=== PATIENT | male | born 1970 | race Two or more races ===

== ENCOUNTER 2018-11-03 11:08 | Emergency (ER) | payer SELFPAY ==
[~2018-11-03] VITALS: Ht 175.3 cm; Wt 99.8 kg
[~2018-11-03 11:08] MED LIST: NAPR220T90 PO
[2018-11-03 11:33] VITALS: BP 144/68
[2018-11-03] MEDS ORDERED: CYCL10TA2 PO (11:42)
[2018-11-03] MEDS ORDERED: NAPR-514 PO (11:42)
--- NOTE | 2018-11-03 11:43 | PHYS DOC ---
Past Medical History Past Medical History: Kidney Stone, Other Additional Past Medical Histor: CHRONIC BACK PAIN Past Surgical History: Other Additional Past Surgical Histo: LEFT THUMB SURGERY Alcohol Use: None Drug Use: None Adult General Chief Complaint Chief Complaint: BACK PAIN OR INJURY [facility] HPI 48-year-old male presents with several month history of back pain. He states it's been worse lately. He states about 8 months ago he picked up something heavy and tweaked his back. The pain is waxed and waned since that time. He denies any radicular symptoms. He denies any bowel or bladder dysfunction. He denies any saddle paresthesias. He states the pain is made much worse with twisting or flexion.[] Review of Systems Review of Systems Constitutional: Denies fever or chills [] Eyes: Denies change in visual acuity, redness, or eye pain [] HENT: Denies nasal congestion or sore throat [] Respiratory: Denies cough or shortness of breath [] Cardiovascular: No additional information not addressed in HPI [] GI: Denies abdominal pain, nausea, vomiting, bloody stools or diarrhea [] : Denies dysuria or hematuria [] Musculoskeletal: Back pain as described above[] Integument: Denies rash or skin lesions [] Neurologic: Denies headache, focal weakness or sensory changes [] Endocrine: Denies polyuria or polydipsia [] All other systems were reviewed and found to be within normal limits, except as documented in this note. Current Medications Current Medications Current Medications Medications (Trade) Dose Ordered Sig/Moris Start Time Stop Time Status Last Admin Dose Admin Cyclobenzaprine HCl (Flexeril) 10 mg 1X ONCE 11/03/18 11:45 11/03/18 11:46 UNV Naproxen (Naprosyn) 500 mg 1X ONCE 11/03/18 11:45 11/03/18 11:46 UNV Allergies Allergies Allergies Coded Allergies Type Severity Reaction Last Updated Verified No Known Drug Allergies 09/05/14 No Physical Exam Physical Exam Constitutional: Well developed, well nourished, mild distress, non-toxic appearance. [] HENT: Normocephalic, atraumatic, bilateral external ears normal, oropharynx moist, no oral exudates, nose normal. [] Eyes: PERRLA, EOMI, conjunctiva normal, no discharge. [] Neck: Normal range of motion, no tenderness, supple, no stridor. [] Cardiovascular:Heart rate regular rhythm, no murmur [] Lungs & Thorax: Bilateral breath sounds clear to auscultation [] Abdomen: Bowel sounds normal, soft, no tenderness, no masses, no pulsatile masses. [] Skin: Warm, dry, no erythema, no rash. [] Back: Thoracic or lumbar paraspinal muscle spasm right greater than left no midline vertebral tenderness or step-off[] Extremities: No tenderness, no cyanosis, no clubbing, ROM intact, no edema. [] Neurologic: Alert and oriented X 3, normal motor function, normal sensory function, no focal deficits noted. [] Psychologic: Affect normal, judgement normal, mood normal. [] Current Patient Data Vital Signs Vital Signs Date Time Temp Pulse Resp B/P (MAP) Pulse Ox O2 Delivery O2 Flow Rate FiO2 11/03/18 11:33 97.2 69 16 144/68 (93) 97 Room Air 97.2 EKG EKG [] Radiology/Procedures Radiology/Procedures [] Course & Med Decision Making Course & Med Decision Making Pertinent Labs and Imaging studies reviewed. (See chart for details) [] Dragon Disclaimer Dragon Disclaimer This electronic medical record was generated, in whole or in part, using a voice recognition dictation system. Departure Departure Impression: Primary Impression: Back pain Disposition: 01 HOME, SELF-CARE Condition: STABLE Referrals: NO PCP (PCP) Patient Instructions: Back Pain, Adult, Chronic Back Pain Additional Instructions: Return to the emergency department with any new or concerning symptoms Scripts Naproxen (NAPROXEN) 500 Mg Tablet 1 TAB PO BID PRN for PAIN, #30 TAB 1 Refill Prov: CHRIS GARCIA DO 11/03/18 Cyclobenzaprine Hcl (CYCLOBENZAPRINE HCL) 10 Mg Tablet 1 TAB PO TID PRN for MUSCLE PAIN, #30 TAB Prov: CHRIS GARCIA DO 11/03/18 Problem Qualifiers Primary Impression: Back pain Back pain location: back pain in unspecified location Chronicity: chronic Back pain laterality: bilateral Qualified Codes: M54.9 - Dorsalgia, unspecified; G89.29 - Other chronic pain CHRIS GARCIA DO Nov 03, 2018 11:43
[2018-11-03] MEDS ORDERED: NAPROXEN 500 MG TABLET PO ONE (12:00)
[2018-11-03] MEDS ORDERED: CYCLOBENZAPRINE 10 MG TABLET. PO ONE (12:00)
== END 2018-11-03 12:23 | disposition home or self-care (01) ==
LOC: ER 11:08
DX: M54.9 Dorsalgia, unspecified (principal); G89.29 Other chronic pain; Z87.442 Personal history of urinary calculi
CPT/HCPCS: 99283

== ENCOUNTER 2019-12-27 10:01 | Emergency (ER) | payer SELFPAY ==
[~2019-12-27] VITALS: Ht 180.3 cm; Wt 95.0 kg
[~2019-12-27 10:01] MED LIST changes: +CYCL10TA2 PO; +NAPR-514 PO
[2019-12-27] MEDS ORDERED: ONDANSETRON PF 4 MG/2 ML VIAL. IVP ONE (11:15)
[2019-12-27] MEDS ORDERED: IV NORMAL SALINE 1000ML BAG 1,000 ML IV ONE (11:15)
[2019-12-27] MEDS ORDERED: FAMOTIDINE 20 MG/2 ML VIAL IVP ONE (11:15)
[2019-12-27 11:36] LABS: BASO % 1 % (0-3); EOS # 0.1 x10^3/uL (0.0-0.7); EOS % 2 % (0-3); HEMATOCRIT 44.3 % (39.0-53.0); LYMPH # 1.7 x10^3/uL (1.0-4.8); LYMPH % 26 % (24-48); MEAN CORPUSCULAR HEMOGLOBIN 30 pg (25-35); MEAN CORPUSCULAR HGB CONC 34 g/dL (31-37); MEAN CORPUSCULAR VOLUME 88 fL (79-100); MONO # 0.4 x10^3/uL (0.0-1.1); MONO % 6 % (0-9); NEUT # 4.4 x10^3/uL (1.8-7.7); NEUT % 66 % (31-73); PLATELET COUNT 195 x10^3/uL (140-400); RED BLOOD COUNT 5.02 x10^6/uL (4.30-5.70); RED CELL DISTRIBUTION WIDTH 13.4 % (11.5-14.5); WHITE BLOOD COUNT 6.6 x10^3/uL (4.0-11.0)
[2019-12-27 11:38] LABS: BILIRUBIN,URINE NEGATIVE (NEG); CLARITY,URINE CLEAR; COLOR,URINE YELLOW; NITRITE,URINE NEGATIVE (NEG); PH,URINE 6.5 (<5.0-8.0); PROTEIN,URINE NEGATIVE (NEG-TRACE); UROBILINOGEN,URINE 0.2 mg/dL (0.2 mg/dL)
[2019-12-27 11:46] LABS: AMPHETAMINE/METHAMPHETAMINE NEG (NEG); BARBITURATES NEG (NEG); BENZODIAZEPINES NEG (NEG); CANNABINOIDS NEG (NEG); COCAINE NEG (NEG); METHADONE NEG (NEG); OPIATES NEG (NEG); PHENCYCLIDINE NEG (NEG)
[2019-12-27 11:47] LABS: BACTERIA,URINE FEW /HPF (0-FEW)
[2019-12-27 11:52] LABS: CALCIUM 9.1 mg/dL (8.5-10.1); CREATININE 0.8 mg/dL (0.7-1.3); GFR 103.6; POTASSIUM 4.2 mmol/L (3.5-5.1)
[2019-12-27 11:57] LABS: ALBUMIN/GLOBULIN RATIO 1.2 (1.0-1.7); MAGNESIUM 2.4 mg/dL (1.8-2.4); TOTAL BILIRUBIN 0.2 mg/dL (0.2-1.0); TOTAL PROTEIN 7.4 g/dL (6.4-8.2)
[2019-12-27] MEDS ORDERED: IOHEXOL 300 MG/ML 100ML VIAL. IV ONE (12:15)
--- NOTE | 2019-12-27 12:53 | RAD ---
Contrast-enhanced CT scan of the abdomen and pelvis compared to similar exam dated September 05, 2014 for abdominal pain for 2 days. TECHNIQUE: Contiguous axial CT images of the abdomen and pelvis are performed following administration of IV contrast. FINDINGS: There is atelectasis in the lung bases. The liver, pancreas, spleen, bilateral adrenal glands, and gallbladder are all unremarkable. Portal vein is patent. The right kidney is notable for 5 mm nonobstructing mid pole calyceal calculus. Also in the midpole of the right kidney laterally on series 2 axial image #37 is a 1 cm entirely parenchymal round mass with Hounsfield units of 51, which could reflect a hyperdense cyst or enhancing soft tissue renal neoplasm. There is a subtle but smaller abnormality seen on the prior examination. Further evaluation of this incompletely characterized abnormality with renal ultrasound, three-phase CT scan or MRI is recommended. In the mid substance of the left kidney posteriorly on series #2 axial image #32 is an ovoid 1 cm hypodensity which also has Hounsfield units greater than simple fluid at 24. This was present on the prior noncontrast CT scan from 2014 and is most likely a benign cyst. No further follow-up of this abnormality is required. No ureteral or bladder calculi are identified. No free or loculated fluid collections are seen within the abdomen or pelvis. There is a small amount of enteric contrast within the distal small bowel, however this is minimal. No gross abnormalities of large or small bowel are identified. There are few sigmoid diverticula, however there is no evidence of acute diverticulitis. No suspicious mesenteric or retroperitoneal adenopathy is seen. The appendix is not identified. Small coarse calcification in the prostate is present. Prostate does not appear grossly enlarged however. No fractures or acute osseous abnormalities are identified. No suspicious osteoblastic or osteolytic bone lesions. IMPRESSION: 1. No acute abdominal or pelvic abnormality. 2. 5 mm nonobstructing right calyceal calculus. 3. Bibasilar atelectasis. 4. 1 cm parenchymal round high attenuation abnormality within the mid substance of the right kidney which is incompletely characterized and could reflect a benign hyperdense cyst, or renal neoplasm. Further evaluation with renal ultrasound, [address] scan, or MRI is recommended. Para PQRS Compliance Statement: One or more of the following individualized dose reduction techniques were utilized for this examination: 1. Automated exposure control 2. Adjustment of the mA and/or kV according to patient size 3. Use of iterative reconstruction technique Electronically signed by: Lg Jane MD (12/27/2019 12:49 PM) [id number]
--- NOTE | 2019-12-27 14:36 | RAD ---
Complete right renal ultrasound HISTORY: Right renal mass on CT scan. Right renal mass discovered on CT scan. Increased liver echogenicity typical steatosis. Left kidney not evaluated. Aorta and IVC not visualized due to bowel gas shadowing. Right renal length 14.4 cm. Bowel gas shadowing limits visualization of the lower pole. Normal cortical thickness and echogenicity. No renal mass or hydronephrosis evident. There is no sonographic correlate for the 1 cm lesion on recent CT imaging of the right kidney. There is an 8 mm right renal interpolar calculus present on prior CT imaging noted. The supervisor tumbling and rolling measures a separate 2.2 cm round hypoechoic nonshadowing lesion of the right renal interpolar medullary parenchyma near the renal calyces which is indeterminate, this had no obvious correlate on CT imaging. Bladder is mildly distended. IMPRESSION: 1. The 1 cm right renal interpolar lesion on prior CT imaging is not well visualized sonographically. There is a separate 2.2 cm round hypoechoic nonshadowing lesion of the right renal interpolar parenchyma near the calyces documented. This is indeterminate and could represent a complicated cystic structure or solid mass. Consider further assessment with MR imaging. 2. Increased echogenicity of the liver typical of steatosis. 3. Small right renal calculus again demonstrated. Electronically signed by: Jose Adrian MD (12/27/2019 2:33 PM) [facility]
[2019-12-27] MEDS ORDERED: TAMS0.4C97 PO (16:06)
--- NOTE | 2019-12-27 16:06 | PHYS DOC ---
Past Medical History Past Medical History: Kidney Stone, Other Additional Past Medical Histor: CHRONIC BACK PAIN Past Surgical History: Other Additional Past Surgical Histo: LEFT THUMB SURGERY Smoking Status: Never Smoker Alcohol Use: None Drug Use: None General Adult EDM: Chief Complaint: ABDOMINAL PAIN HPI: HPI: Patient is a 49 year old male who presents the ED today complaining of 6 out of 10 generalized abdominal pain that has been going on for 2 days, patient reports symptoms are worse after eating, he states he feels bloated. Denies any nausea vomiting, denies any diarrhea. Reports the last bowel movement was today and normal. He is Malagasy-speaking and the son is interpreting. He also understands some Khmer. Review of Systems: Review of Systems: Constitutional: Denies fever or chills. [] Eyes: Denies change in visual acuity. [] HENT: Denies nasal congestion or sore throat. [] Respiratory: Denies cough or shortness of breath. [] Cardiovascular: Denies chest pain or edema. [] GI: Reports generalized abdominal pain, denies nausea, vomiting, bloody stools or diarrhea. [] : Denies dysuria. [] Musculoskeletal: Denies back pain or joint pain. [] Integument: Denies rash. [] Neurologic: Denies headache, focal weakness or sensory changes. [] Psychiatric: Denies depression or anxiety. [] Heart Score: Risk Factors: Risk Factors: DM, Current or recent (<one month) smoker, HTN, HLP, family history of CAD, obesity. Risk Scores: Score 0 - 3: 2.5% MACE over next 6 weeks - Discharge Home Score 4 - 6: 20.3% MACE over next 6 weeks - Admit for Clinical Observation Score 7 - 10: 72.7% MACE over next 6 weeks - Early Invasive Strategies Current Medications: Current Medications Medications (Trade) Dose Ordered Sig/Moris Start Time Stop Time Status Last Admin Dose Admin Famotidine (Pepcid Vial) 20 mg 1X ONCE 12/27/19 11:15 12/27/19 11:16 DC 12/27/19 11:53 20 MG Iohexol (Omnipaque 300 Mg/ml) 75 ml 1X ONCE 12/27/19 12:15 12/27/19 12:16 DC 12/27/19 12:35 75 ML Ondansetron HCl (Zofran) 4 mg 1X ONCE 12/27/19 11:15 12/27/19 11:16 DC 12/27/19 11:53 4 MG Sodium Chloride 1,000 ml @ 1,000 mls/hr 1X ONCE 12/27/19 11:15 12/27/19 12:14 DC 12/27/19 11:53 1,000 MLS/HR Allergies: Allergies: Allergies Coded Allergies Type Severity Reaction Last Updated Verified No Known Drug Allergies 09/05/14 No Physical Exam: PE: Constitutional: Well developed, well nourished, no acute distress, non-toxic appearance. [] HENT: Normocephalic, atraumatic, bilateral external ears normal, oropharynx moist, no oral exudates, nose normal. [] Eyes: PERRLA, EOMI, conjunctiva normal, no discharge. [] Neck: Normal range of motion, no tenderness, supple, no stridor. [] Cardiovascular:Heart rate regular rhythm, no murmur [] Lungs & Thorax: Bilateral breath sounds clear to auscultation [] Abdomen: Bowel sounds normal, soft, no tenderness, no masses, no pulsatile masses. [] Skin: Warm, dry, no erythema, no rash. [] Back: No tenderness, no CVA tenderness. [] Extremities: No tenderness, no cyanosis, no clubbing, ROM intact, no edema. [] Neurologic: Alert and oriented X 3, normal motor function, normal sensory function, no focal deficits noted. [] Psychologic: Affect normal, judgement normal, mood normal. [] Current Patient Data: Labs: Laboratory Tests Test 12/27/19 11:26 White Blood Count 6.6 x10^3/uL (4.0-11.0) Red Blood Count 5.02 x10^6/uL (4.30-5.70) Hemoglobin 15.0 g/dL (13.0-17.5) Hematocrit 44.3 % (39.0-53.0) Mean Corpuscular Volume 88 fL (79-100) Mean Corpuscular Hemoglobin 30 pg (25-35) Mean Corpuscular Hemoglobin Concent 34 g/dL (31-37) Red Cell Distribution Width 13.4 % (11.5-14.5) Platelet Count 195 x10^3/uL (140-400) Neutrophils (%) (Auto) 66 % (31-73) Lymphocytes (%) (Auto) 26 % (24-48) Monocytes (%) (Auto) 6 % (0-9) Eosinophils (%) (Auto) 2 % (0-3) Basophils (%) (Auto) 1 % (0-3) Neutrophils # (Auto) 4.4 x10^3/uL (1.8-7.7) Lymphocytes # (Auto) 1.7 x10^3/uL (1.0-4.8) Monocytes # (Auto) 0.4 x10^3/uL (0.0-1.1) Eosinophils # (Auto) 0.1 x10^3/uL (0.0-0.7) Basophils # (Auto) 0.0 x10^3/uL (0.0-0.2) Urine Collection Type Unknown Urine Color Yellow Urine Clarity Clear Urine pH 6.5 (<5.0-8.0) Urine Specific [place] 1.020 (1.000-1.030) Urine Protein Negative mg/dL (NEG-TRACE) Urine Glucose (UA) Negative mg/dL (NEG) Urine Ketones (Stick) Negative mg/dL (NEG) Urine Blood Negative (NEG) Urine Nitrite Negative (NEG) Urine Bilirubin Negative (NEG) Urine Urobilinogen Dipstick 0.2 mg/dL (0.2 mg/dL) Urine Leukocyte Esterase Negative (NEG) Urine RBC 1-2 /HPF (0-2) Urine WBC 1-4 /HPF (0-4) Urine Bacteria Few /HPF (0-FEW) Urine Mucus Marked /LPF Sodium Level 142 mmol/L (136-145) Potassium Level 4.2 mmol/L (3.5-5.1) Chloride Level 105 mmol/L (98-107) Carbon Dioxide Level 29 mmol/L (21-32) Anion Gap 8 (6-14) Blood Urea Nitrogen 15 mg/dL (8-26) Creatinine 0.8 mg/dL (0.7-1.3) Estimated GFR (Cockcroft-Gault) 103.6 BUN/Creatinine Ratio 19 (6-20) Glucose Level 98 mg/dL (70-99) Calcium Level 9.1 mg/dL (8.5-10.1) Magnesium Level 2.4 mg/dL (1.8-2.4) Total Bilirubin 0.2 mg/dL (0.2-1.0) Aspartate Amino Transferase (AST) 24 U/L (15-37) Alanine Aminotransferase (ALT) 40 U/L (16-63) Alkaline Phosphatase 81 U/L (46-116) Total Protein 7.4 g/dL (6.4-8.2) Albumin 4.0 g/dL (3.4-5.0) Albumin/Globulin Ratio 1.2 (1.0-1.7) Lipase 129 U/L (73-393) Urine Opiates Screen Neg (NEG) Urine Methadone Screen Neg (NEG) Urine Barbiturates Neg (NEG) Urine Phencyclidine Screen Neg (NEG) Urine Amphetamine/Methamphetamine Neg (NEG) Urine Benzodiazepines Screen Neg (NEG) Urine Cocaine Screen Neg (NEG) Urine Cannabinoids Screen Neg (NEG) Ethyl Alcohol Level < 10 mg/dL (0-10) Urine Ethyl Alcohol Neg (NEG) Laboratory Tests 12/27/19 11:26 Laboratory Tests 12/27/19 11:26 Vital Signs: Vital Signs Date Time Temp Pulse Resp B/P (MAP) Pulse Ox O2 Delivery O2 Flow Rate FiO2 12/27/19 14:30 64 18 144/82 (102) 99 Room Air 12/27/19 11:33 98.2 98.2 EKG: EKG: [] Radiology/Procedures: Radiology/Procedures: PROCEDURE: CT ABD PELV W/ IV CONTRST ONLY Contrast-enhanced CT scan of the abdomen and pelvis compared to similar exam dated September 05, 2014 for abdominal pain for 2 days. TECHNIQUE: Contiguous axial CT images of the abdomen and pelvis are performed following administration of IV contrast. FINDINGS: There is atelectasis in the lung bases. The liver, pancreas, spleen, bilateral adrenal glands, and gallbladder are all unremarkable. Portal vein is patent. The right kidney is notable for 5 mm nonobstructing mid pole calyceal calculus. Also in the midpole of the right kidney laterally on series 2 axial image #37 is a 1 cm entirely parenchymal round mass with Hounsfield units of 51, which could reflect a hyperdense cyst or enhancing soft tissue renal neoplasm. There is a subtle but smaller abnormality seen on the prior examination. Further evaluation of this incompletely characterized abnormality with renal ultrasound, three-phase CT scan or MRI is recommended. In the mid substance of the left kidney posteriorly on series #2 axial image #32 is an ovoid 1 cm hypodensity which also has Hounsfield units greater than simple fluid at 24. This was present on the prior noncontrast CT scan from 2014 and is most likely a benign cyst. No further follow-up of this abnormality is required. No ureteral or bladder calculi are identified. No free or loculated fluid collections are seen within the abdomen or pelvis. There is a small amount of enteric contrast within the distal small bowel, however this is minimal. No gross abnormalities of large or small bowel are identified. There are few sigmoid diverticula, however there is no evidence of acute diverticulitis. No suspicious mesenteric or retroperitoneal adenopathy is seen. The appendix is not identified. Small coarse calcification in the prostate is present. Prostate does not appear grossly enlarged however. No fractures or acute osseous abnormalities are identified. No suspicious osteoblastic or osteolytic bone lesions. IMPRESSION: 1. No acute abdominal or pelvic abnormality. 2. 5 mm nonobstructing right calyceal calculus. 3. Bibasilar atelectasis. 4. 1 cm parenchymal round high attenuation abnormality within the mid substance of the right kidney which is incompletely characterized and could reflect a benign hyperdense cyst, or renal neoplasm. Further evaluation with renal ultrasound, [address] scan, or MRI is recommended. Para PQRS Compliance Statement: One or more of the following individualized dose reduction techniques were utilized for this examination: 1. Automated exposure control 2. Adjustment of the mA and/or kV according to patient size 3. Use of iterative reconstruction technique Electronically signed by: Lg Orr MD (12/27/2019 12:49 PM) [id number] DICTATED and SIGNED BY: LG ORR MD DATE: 12/27/19 1249 []PROCEDURE: RENAL COMPLETE RIGHT Complete right renal ultrasound HISTORY: Right renal mass on CT scan. Right renal mass discovered on CT scan. Increased liver echogenicity typical steatosis. Left kidney not evaluated. Aorta and IVC not visualized due to bowel gas shadowing. Right renal length 14.4 cm. Bowel gas shadowing limits visualization of the lower pole. Normal cortical thickness and echogenicity. No renal mass or hydronephrosis evident. There is no sonographic correlate for the 1 cm lesion on recent CT imaging of the right kidney. There is an 8 mm right renal interpolar calculus present on prior CT imaging noted. The therapy assistant measures a separate 2.2 cm round hypoechoic nonshadowing lesion of the right renal interpolar medullary parenchyma near the renal calyces which is indeterminate, this had no obvious correlate on CT imaging. Bladder is mildly distended. IMPRESSION: 1. The 1 cm right renal interpolar lesion on prior CT imaging is not well visualized sonographically. There is a separate 2.2 cm round hypoechoic nonshadowing lesion of the right renal interpolar parenchyma near the calyces documented. This is indeterminate and could represent a complicated cystic structure or solid mass. Consider further assessment with MR imaging. 2. Increased echogenicity of the liver typical of steatosis. 3. Small right renal calculus again demonstrated. Electronically signed by: Emeka Adrian MD (12/27/2019 2:33 PM) [facility] [place] DICTATED and SIGNED BY: EMEKA ADRIAN MD DATE: 12/27/19 1433 Course & Med Decision Making: Course & Med Decision Making Pertinent Labs and Imaging studies reviewed. (See chart for details) This is a 49-year-old male patient presenting to the ED today with generalized abdominal pain, symptoms for 2 days. CBC, CMP, lipase, UA negative for any acute findings. CT of the abdomen and pelvic was negative for any acute findings. Noted for 5 mm nonobstructing right calyceal calculus. 1 cm parenchymal round high attenuation abnormality within the mid substance of the right kidney which is incompletely characterized and could reflect a benign hyperdense cyst, or renal neoplasm. Further evaluation with renal ultrasound, [address] scan, or MRI is recommended. Renal ultrasound noted for 1 cm right renal interpolar lesion on prior CT imaging is not well. There is a separate 2.2 cm round hypoechoic nonshadowing lesion of the right renal interpolar parenchyma near the calyces documented. This is indeterminate and could represent a complicated cystic structure or solid mass. Consider further assessment with MR imaging. Increased echogenicity of the liver typical of steatosis. Small right renal calculus again demonstrated. Results were discussed with patient and son. Follow-up with urologist of his own choice. He also has a PCP who we will follow-up with. Jessica Disclaimer: Jessica Disclaimer: This electronic medical record was generated, in whole or in part, using a voice recognition dictation system. Departure Departure Impression: Primary Impression: Kidney stone Additional Impressions: Renal mass Abdominal pain Qualified Codes: R10.84 - Generalized abdominal pain Disposition: HOME, SELF-CARE Condition: STABLE Referrals: UNKNOWN PCP NAME (PCP) follow up with your doctor and a urologist of your choice. [facility] has urologist you can call their referall line on [phone] and set up a follow up Patient Instructions: Kidney Stones Additional Instructions: You were evaluated in the emergency room and noted to have a kidney stone 5mm non-obstructing right kidney stone and right renal mass. Please follow up with a urologist of your own. Scripts Tamsulosin Hcl (FLOMAX) 0.4 Mg Cap.er.24h 1 CAP PO DAILY, #30 CAP 0 Refills Prov: BELINDA CEVALLOS APRN 12/27/19 Justicifation of Admission Dx: Justifications for Admission: Justification of Admission Dx: N/A BELINDA CEVALLOS APRN Dec 27, 2019 16:06
[2019-12-27 17:00] VITALS: BP 139/70
== END 2019-12-27 17:05 | disposition home or self-care (01) ==
LOC: ER 10:01
DX: N20.0 Calculus of kidney (principal); N28.89 Other specified disorders of kidney and ureter; G89.29 Other chronic pain
CPT/HCPCS: 36415; 74177; 76775; 80053; 80307; 81001; 83690; 83735; 85025; 96361; 96374; 96375; 99285; G0480; J2405; J3490; J7030; Q9967